=== PATIENT | female | born 1985 | race Caucasian/White ===

== ENCOUNTER 2018-03-05 11:08 | Emergency (ER) | payer MEDICAID ==
[~2018-03-05] VITALS: Ht 165.1 cm; Wt 82.1 kg
[2018-03-05 11:15] VITALS: BP 137/86
--- NOTE | 2018-03-05 11:21 | NUR ---
PATIENT PRESENTS TO ED WITH THE CHIEF C/O RLQ PAIN. PT STATES SHE HAS THIS PAIN SINCE 5 DAYS. HAS N. STATED VOMITED 3 TIMES TODAY. NO VOMITING NOTED AT THIS TIME. V. DENIES DIARRHEA. ABDOMEN SOFT, ROUND AND TENDER. ACTIVE BOWEL SOUND ON ALL FOUR QUADRANTS. STATED SHE IS NOT HAVING BM SINCE WEDNESDAY. PT ON PERIODS AT THIS TIME. SKIN IS PINK/WARM/DRY; AAOX4 WITH EVEN AND STEADY GAIT. PT DENIES ANY FEVER, CP, SOB, OR COUGH AT THIS TIME; PATIENT STATES ABDOMINAL PAIN OF 6/10 AT THIS TIME; VSS; PATIENT POSITIONED FOR COMFORT; HOB ELEVATED; BEDRAILS UP X2; BED DOWN. ER MD MADE AWARE OF PT STATUS.
--- NOTE | 2018-03-05 11:45 | NUR ---
PT BEING SEEN BY DR. HAMPTON AT THIS TIME.
[2018-03-05] MEDS ORDERED: ONDANSETRON 4 MG/2 ML VIAL IVP ONE (11:50)
[2018-03-05] MEDS ORDERED: KETOROLAC 30 MG/ML VIAL IVP ONE (11:50)
--- NOTE | 2018-03-05 12:26 | NUR ---
PT TAKEN TO CT FOR CT ABD/PELVIS VIA WHEELCHAIR BY [employer] BASEBALL COACH.
--- NOTE | 2018-03-05 12:35 | NUR ---
BACK FROM CT.
[2018-03-05] MEDS ORDERED: NACL 0.9% 1,000 ML IV ONE (12:55)
[2018-03-05 13:00] LABS: BASOPHILS % (AUTO) 0.3 % (0.0-2.0); EOSINOPHILS # (AUTO) 0.2 K/uL (0-0.4); EOSINOPHILS % (AUTO) 1.8 % (0.0-4.0); HEMATOCRIT 32.1 % (36-48); HEMOGLOBIN 10.2 g/dL (12.0-16.0); LYMPHOCYTES # (AUTO) 1.9 K/uL (2.5-16.5); LYMPHOCYTES % (AUTO) 19.8 % (20.5-51.1); MEAN CORPUSCULAR HEMOGLOBIN 25 pg (27-31); MEAN CORPUSCULAR HGB CONC 32 g/dL (33-37); MONOCYTES # (AUTO) 0.6 K/uL (0.8-1.0); NEUTROPHILS % (AUTO) 72.1 % (42.2-75.2); PLATELET COUNT (AUTO) 264 K/uL (140-450); RED BLOOD CELL COUNT(AUTO) 4.11 MIL/uL (4.20-5.40); RED CELL DISTRIBUTION WIDTH 14.3 % (11.6-13.7); WHITE BLOOD COUNT (AUTO) 9.7 K/uL (4.8-10.8)
[2018-03-05 13:06] LABS: APPEARANCE,URINE CLOUDY (CLEAR); BILIRUBIN,URINE NEGATIVE (NEGATIVE); BLOOD, URINE 3+ (NEGATIVE); COLOR,URINE YELLOW (YELLOW); LEUKOCYTE ESTERASE ,URINE NEGATIVE (NEGATIVE); NITRITE, URINE NEGATIVE (NEGATIVE); UGLUCOSE NEGATIVE (NEGATIVE)
[2018-03-05 13:29] LABS: RBC,URINE 50-80 /HPF (0-5)
[2018-03-05 13:30] LABS: WBC,URINE 0-5 (RARE) /HPF (0-5)
[2018-03-05 13:59] LABS: ANION GAP 6.9 (8-16); CARBON DIOXIDE 28.9 mmol/L (21-32); CREATININE 1.4 mg/dL (0.6-1.3); POTASSIUM 3.8 mmol/L (3.5-5.1)
[2018-03-05 14:11] LABS: TOTAL BILIRUBIN 0.5 mg/dL (0.0-1.0)
[2018-03-05 14:12] LABS: ALBUMIN 3.4 g/dL (3.4-5.0)
[2018-03-05 14:20] VITALS: BP 129/79
--- NOTE | 2018-03-05 14:21 | NUR ---
Patient discharged with v/s stable. Written and verbal after care instructions given and explained. Patient alert, oriented and verbalized understanding of instructions. Ambulatory with steady gait. All questions addressed prior to discharge. ID band removed. Patient advised to follow up with PMD. Rx of NORCO, MOTRIN, ZOFRAN, FLOMAX given. Patient educated on indication of medication including possible reaction and side effects. Opportunity to ask questions provided and answered.
== END 2018-03-05 14:21 | disposition home or self-care (01) ==
LOC: MED 11:08
DX: N20.0 Calculus of kidney (principal)
CPT/HCPCS: 36415; 74176; 80053; 81001; 81025; 83690; 85025; 96374; 96375; 99284; J1885; J2405

== ENCOUNTER 2021-03-28 08:07 | Emergency (ER) | payer MEDICAID, OTHER ==
[~2021-03-28] VITALS: Ht 157.5 cm; Wt 89.8 kg
[2021-03-28 08:17] VITALS: BP 138/74
--- NOTE | 2021-03-28 08:20 | NUR ---
36 y/o F BIB self from home c/o 3 days of headache, productive cough, sore throat. States Ibuprofen without relief. Denies chest pain, SOB, dizziness, headache. PMH: anemia Meds: iron NKDA
[2021-03-28] MEDS ORDERED: AMOXIL/CLAVULANATE 875/125 MG 1 TAB PO ONE (09:30)
[2021-03-28] MEDS ORDERED: KETOROLAC 30 MG/ML VIAL IM ONE (09:30)
--- NOTE | 2021-03-28 09:47 | NUR ---
Patient discharged with v/s stable. Written and verbal after care instructions given and explained. Patient verbalized understanding. Ambulatory with steady gait. All questions addressed prior to discharge. Advised to follow up with PMD.
== END 2021-03-28 09:47 | disposition home or self-care (01) ==
LOC: MED 08:07
DX: U07.1 COVID-19 (principal)
CPT/HCPCS: 96372; 99283; J1885; U0003

== ENCOUNTER 2021-10-01 01:10 | Emergency (ER) | payer OTHER ==
[~2021-10-01] VITALS: Ht 160 cm; Wt 88.5 kg
[2021-10-01 01:25] VITALS: BP 161/97
--- NOTE | 2021-10-01 01:32 | NUR ---
TO LOBBY FOLLOWING TRIAGE
[2021-10-01] MEDS ORDERED: ACETAMINOPHEN EXTRA STRENGTH 500 MG TAB PO ONE (02:45)
== END 2021-10-01 05:25 | disposition home or self-care (01) ==
LOC: MED 01:10
DX: M79.672 Pain in left foot (principal)
CPT/HCPCS: 73630; 99283